=== PATIENT | male | born 1955 | race Caucasian/White ===

== ENCOUNTER 2019-06-11 20:28 | Emergency (ER) | payer MEDICARE, OTHER ==
[~2019-06-11] VITALS: Ht 182.9 cm; Wt 136.1 kg
[~2019-06-11 20:28] MED LIST: ASPI-1169 PO; DILT360C32 PO; METF500T7 PO; VALS320T16 PO
[2019-06-11 20:50] VITALS: BP 126/85
[2019-06-11] MEDS ORDERED: KETOROLAC TROMETHAMINE INJ 30 MG/ML VIAL ONE (21:28)
[2019-06-11] MEDS ORDERED: KETOROLAC TROMETHAMINE INJ 60 MG/2 ML VIAL IM ONE (21:30)
== END 2019-06-11 21:54 | disposition home or self-care (01) ==
LOC: ER 20:39
DX: M54.6 Pain in thoracic spine (principal); I10 Essential (primary) hypertension; E11.9 Type 2 diabetes mellitus without complications; E66.9 Obesity, unspecified; Z79.82 Long term (current) use of aspirin; Z95.5 Presence of coronary angioplasty implant and graft
CPT/HCPCS: 96372; 99283; J1885

== ENCOUNTER 2022-03-16 10:31 | Emergency (ER) | payer MEDICARE, OTHER ==
[~2022-03-16] VITALS: Ht 182.9 cm; Wt 127.0 kg
[~2022-03-16 10:31] MED LIST changes: +METF-881 PO; -METF500T7 PO
[2022-03-16 10:41] VITALS: BP 156/83
--- NOTE | 2022-03-16 10:41 | NUR ---
SENT HERE BY PMD FOR I &D OF FINGER ABSCESS,4TH DIGIT,R HAND.
[2022-03-16] MEDS ORDERED: TETRACAINE/BENZOCAINE/BUTAMBEN 56 GM SPRAY TP ONE ×2 (11:00→11:21)
--- NOTE | 2022-03-16 11:15 | NUR ---
DR JEFFERS AT BEDSIDE FOR I&D
--- NOTE | 2022-03-16 11:30 | NUR ---
Patient discharged to home in stable condition. Written and verbal after care instructions given. Patient verbalizes understanding of instruction.
== END 2022-03-16 11:31 | disposition home or self-care (01) ==
LOC: ER 10:35
DX: L03.011 Cellulitis of right finger (principal); I10 Essential (primary) hypertension; E11.9 Type 2 diabetes mellitus without complications; Z79.899 Other long term (current) drug therapy
CPT/HCPCS: 10060; 99282; A6403

== ENCOUNTER 2023-03-21 01:10 | Inpatient (IN) | payer MEDICARE, OTHER ==
[~2023-03-21] VITALS: Ht 177.8 cm; Wt 131.5 kg
--- NOTE | 2023-03-21 01:12 | NUR ---
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 DENIES CP. PT AAOX4, IN NAD, PLACED COMFORTABLY IN BED, CONNECTED TO [employer]NAGER [employer]. VITALS CHECKED.
--- NOTE | 2023-03-21 01:13 | NUR ---
18GA S/L TO RIGHT HAND ESTABLISHED HOUSE MOTHER
--- NOTE | 2023-03-21 01:14 | NUR ---
EKG DONE AT BEDSIDE
--- NOTE | 2023-03-21 01:23 | NUR ---
COVID SWAB DONE AND SENT TO LAB
[2023-03-21] MEDS ORDERED: ATROPINE SULFATE 1 MG/10 ML DISP.SYRIN ONE (01:24)
--- NOTE | 2023-03-21 01:25 | NUR ---
BLOOD WORK COLLECTED, SENT TO LAB
[2023-03-21] MEDS ORDERED: ATROPINE SULFATE 1 MG/10 ML DISP.SYRIN IV ONE (01:30)
[2023-03-21] MEDS ORDERED: IV NS 0.9% 1,000 ML BAG IV ONE (01:30)
--- NOTE | 2023-03-21 02:00 | NUR ---
[id number]
[2023-03-21 02:06] LABS: BASOPHILS # (AUTO) 0.1 K/uL (0.0-0.2); BASOPHILS % (AUTO) 0.7 % (0.0-2.0); EOSINOPHILS % (AUTO) 0.5 % (0.0-6.0); HEMATOCRIT 39 % (39-51); HEMOGLOBIN 12.6 g/dL (13.5-17.5); LYMPHOCYTES # (AUTO) 1.3 K/uL (0.8-4.8); LYMPHOCYTES % (AUTO) 11.3 % (20.0-44.0); MEAN CORPUSCULAR HGB CONC 32 g/dl (31.0-36.0); MEAN CORPUSCULAR VOLUME 93 fL (80-96); MONOCYTES # (AUTO) 0.5 K/uL (0.1-1.30); MONOCYTES % (AUTO) 4.8 % (2.0-12.0); NEUTROPHILS # (AUTO) 9.2 K/uL (1.8-8.9); NEUTROPHILS % (AUTO) 82.7 % (43.0-81.0); PLATELET COUNT (AUTO) 352 K/uL (150-450); RED BLOOD CELL COUNT(AUTO) 4.16 MIL/uL (4.5-6.0); WHITE BLOOD COUNT (AUTO) 11.1 K/uL (4.3-11.0)
[2023-03-21] MEDS ORDERED: NS 0.9% IV ONE (02:30)
[2023-03-21] MEDS ORDERED: GLUCAGON HUMAN RECOMBINANT IV ONE (02:30)
[2023-03-21] MEDS ORDERED: GLUCAGON,HUMAN RECOMBINANT 1 MG/VIAL VIAL ONE ×4 (02:36→02:51)
[2023-03-21] MEDS ORDERED: WATER FOR INJECTION,STERILE 10 ML ONE (02:37)
[2023-03-21] MEDS ORDERED: INSULIN REGULAR, HUMAN 100 UNIT/ML 3 ML VIAL SQ PRN (03:00)
[2023-03-21] MEDS ORDERED: ACETAMINOPHEN 325 MG TABLET PO PRN (03:00)
[2023-03-21] MEDS ORDERED: ATROPINE SULFATE 1 MG/10 ML DISP.SYRIN IV PRN (03:00)
[2023-03-21] MEDS ORDERED: MAG HYDROX/AL HYDROX/SIMETH 30 ML UDC PO PRN (03:00)
[2023-03-21] MEDS ORDERED: Z GUARD REMEDY 4 OZ OINT TP PRN (03:00)
[2023-03-21] MEDS ORDERED: ONDANSETRON HCL/PF 4 MG/2 ML VIAL IVP PRN (03:00)
[2023-03-21] MEDS ORDERED: MAGNESIUM HYDROXIDE 30 ML UDC PO PRN (03:00)
[2023-03-21] MEDS ORDERED: DEXTROSE 50%-WATER 50 ML DISP.SYRIN IV PRN (03:00)
[2023-03-21] MEDS ORDERED: ZOLPIDEM TARTRATE 5 MG TABLET PO PRN (03:00)
[2023-03-21 03:12] LABS: ALANINE AMINOTRANSFERASE 37 U/L (12-78); ALBUMIN 3.4 g/dL (3.4-5.0); ALKALINE PHOSPHATASE 62 U/L (46-116); ASPARTATE AMINOTRANSFERASE 25 U/L (15-37); BILIRUBIN,DIRECT 0.1 mg/dL (0.0-0.2); BILIRUBIN,TOTAL 0.4 mg/dL (0.2-1.0); CALCIUM, SERUM 8.8 mg/dL (8.5-10.1); CARBON DIOXIDE 23 mmol/L (21-32); CHLORIDE 101 mmol/L (98-107); CREATININE 0.9 mg/dL (0.6-1.3); GLUCOSE 214 mg/dL (74-106); POTASSIUM 5.5 mmol/L (3.5-5.1); SODIUM SERUM 133 mmol/L (136-145); TOTAL PROTEIN, SERUM 6.7 g/dL (6.4-8.2); UREA NITROGEN, BLOOD 19 mg/dL (7-18)
[2023-03-21] MEDS ORDERED: ALBUTEROL FS 2.5 MG/0.5 ML VIAL.NEB NEB ONE (03:30)
--- NOTE | 2023-03-21 03:30 | NUR ---
APPLICATIONS TRAINER AT BEDSIDE
[2023-03-21] MEDS ORDERED: ALBUTEROL FS 2.5 MG/0.5 ML VIAL.NEB ONE (04:13)
[2023-03-21 05:03] LABS: BASOPHILS % (AUTO) 0.3 % (0.0-2.0); HEMATOCRIT 39 % (39-51); HEMOGLOBIN 12.4 g/dL (13.5-17.5); LYMPHOCYTES # (AUTO) 0.9 K/uL (0.8-4.8); LYMPHOCYTES % (AUTO) 7.4 % (20.0-44.0); MEAN CORPUSCULAR HGB CONC 32 g/dl (31.0-36.0); MEAN CORPUSCULAR VOLUME 94 fL (80-96); MONOCYTES # (AUTO) 0.4 K/uL (0.1-1.30); NEUTROPHILS # (AUTO) 10.8 K/uL (1.8-8.9); NEUTROPHILS % (AUTO) 89.3 % (43.0-81.0); PLATELET COUNT (AUTO) 293 K/uL (150-450); RED BLOOD CELL COUNT(AUTO) 4.12 MIL/uL (4.5-6.0); WHITE BLOOD COUNT (AUTO) 12.1 K/uL (4.3-11.0)
--- NOTE | 2023-03-21 05:25 | NUR ---
PER NURSE DREW LUA, TRANSFER AFTER CHANGE OF SHIFT
[2023-03-21 05:36] LABS: CALCIUM, SERUM 8.8 mg/dL (8.5-10.1); CREATININE 0.8 mg/dL (0.6-1.3); MAGNESIUM 2.2 mg/dL (1.8-2.4); PHOSPHORUS 4.2 mg/dL (2.5-4.9); POTASSIUM 4.8 mmol/L (3.5-5.1)
--- NOTE | 2023-03-21 06:00 | NUR ---
REPORT GIVEN TO SRAVANI HURLEY, WILL MOVE PATIENT AFTER CHANGE OF SHIFT
--- NOTE | 2023-03-21 06:25 | NUR ---
Patient does not wish to proceed with medical care recommended by Rand Tovar NP. Patient given information related to possible complications, up to and including , which could occur as a result of leaving the hospital at this time. Patient verbalizes understanding of risks involved due to leaving against medical advice. Patient has signed AMA form.
[2023-03-21 06:47] VITALS: BP 126/67
[2023-03-21] MEDS ORDERED: BLOOD SUGAR DIAGNOSTIC 1 EACH STRIP IN SCH (07:30)
[2023-03-21] MEDS ORDERED: ENOXAPARIN SODIUM 40 MG/0.4 ML DISP.SYRIN SQ SCH (09:00)
[2023-03-21] MEDS ORDERED: PANTOPRAZOLE 40 MG VIAL IV SCH (09:00)
[2023-03-21] MEDS ORDERED: CLOPIDOGREL BISULFATE 75 MG TABLET PO SCH (09:00)
[2023-03-21] MEDS ORDERED: SIMVASTATIN 20 MG TABLET PO SCH (22:00)
== END 2023-03-21 06:25 | disposition left against medical advice (07) | DRG 310 ==
LOC: ER 01:12 → TELE1 05:27
PROVIDERS: ADMIT Nurse Practitioner Acute Care; ATTEND Nurse Practitioner Acute Care
DX: R00.1 Bradycardia, unspecified (principal); E87.5 Hyperkalemia
CPT/HCPCS: 36415; 71045-TC; 80048-TC; 80061-TC; 80076-TC; 82962-TC; 83735-TC; 84100-TC; 84439-TC; 84481; 84484-TC; 85025-TC; 85730-TC; 87081-TC; C9803; G0378; J0461; J1610; J1815; J7030

== ENCOUNTER 2023-03-24 20:33 | Emergency (ER) | payer MEDICARE, OTHER ==
[~2023-03-24] VITALS: Ht 182.9 cm; Wt 127.0 kg
--- NOTE | 2023-03-24 20:46 | NUR ---
BIBWIFE FROM HOME FOR SOB SINCE APPROXIMATELY 1830 AND HTN 190/100. HX OF HTN AND CARDIAC ABLASION X3 WEEKS AGO. DENIES C/P AT THIS TIME. TOOK CARDIZEM 240MG AND LOSARTAN 100MG AT 1600. PT AWAKE AND ALERT X4 +INCREASED WORK OF BREATHING TACHYPNEIC AT 26RR AND O2SAT 90% RA. DENIES ANY HX OF SMOKING OR RESPIRITORY ISSUES. PT TO ER BED 9 PLACED ON CARDIAC MONITORING AND PULSE OX FOR CONTINUED MONITORING AND PLACED ON NC FOR OXYGEN SUPPORT.
--- NOTE | 2023-03-24 20:57 | NUR ---
PAtient AOx4, able to express his concerns. Per pts request, t bedside. Patien states he is having difficulty breathing. O2 85%, NC 5lt. applied 95%. Discussed plan of care, patient verblized agreement. Will continue to monitor.
--- NOTE | 2023-03-24 21:12 | NUR ---
MOVE SHEET SUBMITTED
[2023-03-24] MEDS ORDERED: NITROGLYCERIN PACKET 1 GM PACKET ONE (21:13)
[2023-03-24 21:14] LABS: BASOPHILS # (AUTO) 0.1 K/uL (0.0-0.2); BASOPHILS % (AUTO) 0.9 % (0.0-2.0); EOSINOPHILS % (AUTO) 0.6 % (0.0-6.0); HEMATOCRIT 43 % (39-51); HEMOGLOBIN 14.1 g/dL (13.5-17.5); LYMPHOCYTES # (AUTO) 1.4 K/uL (0.8-4.8); LYMPHOCYTES % (AUTO) 16.3 % (20.0-44.0); MEAN CORPUSCULAR HGB CONC 33 g/dl (31.0-36.0); MEAN CORPUSCULAR VOLUME 92 fL (80-96); MONOCYTES # (AUTO) 0.6 K/uL (0.1-1.30); MONOCYTES % (AUTO) 7.4 % (2.0-12.0); NEUTROPHILS # (AUTO) 6.5 K/uL (1.8-8.9); NEUTROPHILS % (AUTO) 74.8 % (43.0-81.0); PLATELET COUNT (AUTO) 315 K/uL (150-450); RED BLOOD CELL COUNT(AUTO) 4.67 MIL/uL (4.5-6.0); WHITE BLOOD COUNT (AUTO) 8.7 K/uL (4.3-11.0)
[2023-03-24] MEDS ORDERED: FUROSEMIDE 40 MG/4 ML VIAL IV ONE (21:30)
[2023-03-24] MEDS ORDERED: NITROGLYCERIN PACKET 1 GM PACKET TOP ONE (21:30)
[2023-03-24 21:46] LABS: CALCIUM, SERUM 9.1 mg/dL (8.5-10.1); CARBON DIOXIDE 25 mmol/L (21-32); CHLORIDE 101 mmol/L (98-107); CREATININE 0.7 mg/dL (0.6-1.3); GLUCOSE 124 mg/dL (74-106); POTASSIUM 5.5 mmol/L (3.5-5.1); SODIUM SERUM 133 mmol/L (136-145); UREA NITROGEN, BLOOD 15 mg/dL (7-18)
[2023-03-24] MEDS ORDERED: FUROSEMIDE 40 MG/4 ML VIAL ONE (21:47)
[2023-03-24 22:00] LABS: ALANINE AMINOTRANSFERASE 40 U/L (12-78); ALBUMIN 3.9 g/dL (3.4-5.0); ALKALINE PHOSPHATASE 75 U/L (46-116); ASPARTATE AMINOTRANSFERASE 44 U/L (15-37); BILIRUBIN,DIRECT 0.1 mg/dL (0.0-0.2); BILIRUBIN,TOTAL 0.5 mg/dL (0.2-1.0)
--- NOTE | 2023-03-24 22:05 | NUR ---
RT called for BIPAP, per legal process specialist request.
--- NOTE | 2023-03-24 22:20 | NUR ---
RT at bedside
[2023-03-24] MEDS ORDERED: MAG HYDROX/AL HYDROX/SIMETH 30 ML UDC PO PRN (22:30)
[2023-03-24] MEDS ORDERED: ACETAMINOPHEN 325 MG TABLET PO PRN (22:30)
[2023-03-24] MEDS ORDERED: ONDANSETRON HCL/PF 4 MG/2 ML VIAL IVP PRN (22:30)
[2023-03-24] MEDS ORDERED: MAGNESIUM HYDROXIDE 30 ML UDC PO PRN (22:30)
[2023-03-24] MEDS ORDERED: ZOLPIDEM TARTRATE 5 MG TABLET PO PRN (22:30)
[2023-03-24] MEDS ORDERED: DEXTROSE 50%-WATER 50 ML DISP.SYRIN IV PRN (22:30)
[2023-03-24] MEDS ORDERED: INSULIN REGULAR, HUMAN 100 UNIT/ML 3 ML VIAL SQ PRN (22:30)
[2023-03-24] MEDS ORDERED: Z GUARD REMEDY 4 OZ OINT TP PRN (22:30)
[2023-03-24] MEDS ORDERED: ENOXAPARIN SODIUM 40 MG/0.4 ML DISP.SYRIN SQ SCH (22:30)
--- NOTE | 2023-03-24 22:39 | NUR ---
RT NOTE Pt rec'd on 3lnc, pt awake and alert. Pt showed diaphoresis, increased wob, and tachypnea. pt placed on bipap on noted settings per md orders. abg to be taken within 1 hr. alarms are set and audible. ambu at bedside. bipap plugged into red outlet. Addendum: 03/24/23 at 2241 by AGUILA PATEL RT Amended: Links added.
--- NOTE | 2023-03-24 23:43 | NUR ---
Patient does not wish to proceed with medical care recommended by Dr. Fermin Watters. Patient given information related to possible complications, up to and including , which could occur as a result of leaving the hospital at this time. Patient verbalizes understanding of risks involved due to leaving against medical advice. Patient has signed AMA form. IV removed. Catheter intact and site benign. Pressure and 4x4 applied to site. No bleeding noted.
[2023-03-24 23:56] VITALS: BP 190/104
--- NOTE | 2023-03-24 23:58 | NUR ---
Patient does not wish to proceed with medical care recommended by Ignacia WOODSON. Patient given information related to possible complications, up to and including , which could occur as a result of leaving the hospital at this time. Patient verbalizes understanding of risks involved due to leaving against medical advice. Patient has signed AMA form.
--- NOTE | 2023-03-24 23:59 | NUR ---
Amalia decided to leave [place], states he will follow up with his physicians. Both certified public accountant at ER tried to speak with amalia and educate, amalia staes he knows what he is doing and is will take him
[2023-03-25] MEDS ORDERED: FUROSEMIDE 40 MG/4 ML VIAL IV ONE (02:00)
[2023-03-25] MEDS ORDERED: BLOOD SUGAR DIAGNOSTIC 1 EACH STRIP IN SCH (07:30)
[2023-03-25] MEDS ORDERED: VALSARTAN 320 MG PO SCH (09:00)
[2023-03-25] MEDS ORDERED: ASPIRIN 81 MG TAB.CHEW PO SCH (09:00)
== END 2023-03-24 23:58 | disposition left against medical advice (07) ==
LOC: ER 20:36
DX: R09.02 Hypoxemia (principal); R06.82 Tachypnea, not elsewhere classified; E87.5 Hyperkalemia; E87.1 Hypo-osmolality and hyponatremia; I11.0 Hypertensive heart disease with heart failure; I50.9 Heart failure, unspecified; R53.1 Weakness; I48.91 Unspecified atrial fibrillation; E78.5 Hyperlipidemia, unspecified; E11.9 Type 2 diabetes mellitus without complications; Z79.899 Other long term (current) drug therapy; Z20.822 Contact with and (suspected) exposure to COVID-19
CPT/HCPCS: 99291; 96374; 87426; 93005 ×2; 71045; 85025; 80048; 80076; 36415; 84484 ×2; 83880; J1940; C9803